=== PATIENT | female | born 1940 | race Caucasian/White ===

== ENCOUNTER 2016-09-28 18:45 | Inpatient (IN) | payer MEDICARE ==
[~2016-09-28] VITALS: Ht 162.6 cm; Wt 82.0 kg
[~2016-09-28 18:45] MED LIST: ALBU0.086 INH; AZIT500I PO; HUMALOGP SQ; HYDR50TA5 PO; LANTUSP SQ; LISI-366 PO; PRED10 PO; TOPR50TA
[2016-09-28 18:46] VITALS: BP 187/87; PULSE 99; RESP 17; TEMP 97.8; O2SAT 98
[2016-09-28 20:15] VITALS: BP 189/85; PULSE 87; RESP 18; O2SAT 100
[2016-09-28] MEDS ORDERED: METO50TA PO (20:15)
[2016-09-28] MEDS ORDERED: ALBU0.08 NEB (20:15)
[2016-09-28] MEDS ORDERED: LISI40TA PO (20:15)
[2016-09-28] MEDS ORDERED: HYDROmorphone HCL PF 1 MG/ML VIAL IV PUSH ONE (20:30)
[2016-09-28] MEDS ORDERED: ONDANSETRON HCL 4 MG/2 ML VIAL IV PUSH ONE (20:30)
[2016-09-28 21:04] LABS: AUTOMATED NEUTROPHIL # 7.9 TH/MM3 (1.8-7.7); BASOPHIL # 0.1 TH/MM3 (0-0.2); BASOPHIL % 0.8 % (0.0-2.0); EOSINOPHIL # 0.1 TH/MM3 (0-0.4); EOSINOPHIL % 0.9 % (0.0-4.0); HEMATOCRIT 31.6 % (35.0-46.0); HEMO FLAGS DIFF FINAL; LYMPHOCYTE # 1.3 TH/MM3 (1.0-4.8); MEAN CELL VOLUME 92.5 FL (80.0-100.0); MEAN CORPUSCULAR HEMOGLOBIN 31.5 PG (27.0-34.0); MONO % 5.4 % (0.0-8.0); NEUT % 79.9 % (16.0-70.0); PLATELET COUNT 309 TH/MM3 (150-450); RED BLOOD COUNT 3.42 MIL/MM3 (4.00-5.30); RED CELL DISTRIBUTION WIDTH 13.2 % (11.6-17.2); WHITE BLOOD COUNT 9.9 TH/MM3 (4.0-11.0)
--- NOTE | 2016-09-28 21:05 | PD ---
HPI Chief Complaint: Fall Time Seen by Provider: 21:00 Travel History International Travel<30 days: No Contact w/Intl Traveler<30days: No Traveled to known affect area: No History of Present Illness HPI 76-year-old female that presents to the ED for evaluation of fall today. Per patient she had a fall earlier today secondary to a trip. Per patient she usually uses her cane which she was using today but she states that she was going a little fast and she lost her balance and fell onto her left side. Per patient she has pain on left shoulder, head, neck, abdomen and lower back. The patient her hips hurt. She was not able to get up on her own and had to have assistance from her family. She denies taking any blood thinners but she also does tell me that she doesn't really know what she takes as she takes "16 different medications" and she didn't bring her list of medications. She does tell me that she has an allergy to Demerol and sulfa. Per patient her pain currently say out of 10 and is more severe on the shoulder than anywhere else. She denies any shortness of breath at this time. She does state me that she has some left-sided chest discomfort in the breast. She denies any cuts of any kind. She did not lose consciousness. She does tell me that she did hit her head however. She denies any prior injuries to these areas. She denies any syncopal episodes. No dizziness. No lightheadedness. No blurry vision or double vision. Pain does not radiate. Per patient the pain is sharp on the shoulder and achy everywhere else. PFSH Past Medical History Cardiovascular Problems: Yes ("HEART PROBLEMS") COPD: Yes Diabetes: Yes (JANUV) Patient Takes Glucophage: No Hypertension: Yes Psychiatric: No Reproductive: Yes (RIGHT OVARY REMOVED) Respiratory: Yes (COPD) : 4 Para: 4 Past Surgical History Abdominal Surgery: Yes (HERNIA 1956) Cholecystectomy: Yes (1991) Hysterectomy: Yes (1979) Tonsillectomy: Yes (CHILDHOOD) Social History Alcohol Use: No Tobacco Use: No Substance Use: No Allergies-Medications (Allergen,Severity, Reaction): Coded Allergies: Demerol (Verified Allergy, Severe, NAUSEA, 09/28/16) Sulfa (Verified Allergy, Severe, NAUSEA, 09/28/16) Reported Meds & Prescriptions Reported Meds & Active Scripts Active Reported Metoprolol Tartrate 50 Mg Tab 50 Mg PO DAILY Lisinopril 40 Mg Tab 40 Mg PO DAILY Albuterol Neb (Albuterol Sulfate) 2.5 Mg/3 Ml Neb 2.5 Mg NEB Q6HR While awake Review of Systems General / Constitutional: No: Fever, Chills, Weight Gain, Weight Loss, Other Eyes: No: Diploplia, Blurred Vision, Photophobia, Drainage, Redness, Foreign Body Sensation, Pain, Tearing, Blind Spots, Visual changes, Blindness, Other HENT: Positive: Headaches, No: Vertigo, Lightheadedness, Sore Throat, Rhinitis , Rhinorrhea, Congestion, Nosebleed, Neck Stiffness, Neck Pain, Masses, Gingival Bleeding, Dental Difficulties, Ear Discharge, Earache, Other Cardiovascular: Positive: Chest Pain or Discomfort, No: Palpitations, Irregular Rhythm, Tachycardia, Diaphoresis, Syncope, Dyspnea on exertion, Varicosities, Edema, Cyanosis, Varicosities, Phlebitis, Claudication, Other Respiratory: No: Cough, Shortness of Breath, Wheezing, Sneezing, Orthopnea, Hemoptysis, Stridor, Night Sweats, Pleuritic Pain, Other Gastrointestinal: Positive: Abdominal Pain, No: Nausea, Vomiting, Diarrhea, Hematemesis, Hematochezia, Constipation, Changes in Bowel Habits, Indigestion, Dysphagia, Loss of Appetite, Other Genitourinary: No: Urgency, Frequency, Dysuria, Nocturia, Hematuria, Decreased Urinary Output, Oliguria, Hesitancy, Dribbling, Incontinence, Pelvic Pain, Flank Pain, Dyspareunia, Discharge, Dysmenorrhea, Menorrhagia, Metorrhagia, Vaginal Bleeding, Other Musculoskeletal: Positive: Limited ROM, Pain, No: Myalgias, Arthralgias, Weakness, Cramping, Edema, Atrophy, Other Skin: No Rash, No Itching, No Dryness, No Lumps, No Hives, No Change in Pigmentation, No Change in nails, No Alopecia, No Lesions, No Breast Lumps, No Breast Tenderness, No Breast Swelling, No Other Neurologic: Positive: Headache, No: Weakness, Dizziness, Syncope, Focal Abnormalities, Coordination Problem, Tremor, Ataxia, Change in Mentation, Slurred Speech, Paresthesia, Incontinence, Seizures, Sensory Disturbance, Other Psychiatric: No: Anxiety, Depression, Suicidal Ideations, Disorder of Thought, Mood Disorder, Substance Abuse, Homicidal Ideation, Other Endocrine: No: Heat Intolerance, Cold Intolerance, Polyuria, Polydipsia, Other Hematologic/Lymphatic: No: Easy Bruising Physical Exam Narrative GENERAL: SKIN: Warm and dry. HEAD: Atraumatic. Normocephalic. EYES: Pupils equal and round 4 mm reactive to light and accommodation. No scleral icterus. No injection or drainage. ENT: No nasal bleeding or discharge. Mucous membranes pink and moist. Tongue is midline. No blood deviation. NECK: Trachea midline. No JVD. CARDIOVASCULAR: Regular rate and rhythm. No murmurs, history, S4. Patient does have reproducible left-sided chest discomfort with touch. RESPIRATORY: No accessory muscle use. Clear to auscultation. Breath sounds equal bilaterally. GASTROINTESTINAL: Abdomen soft, non-tender, nondistended. Hepatic and splenic margins not palpable. MUSCULOSKELETAL: Extremities without clubbing, cyanosis, or edema. No obvious deformities. Full range of motion of the upper and lower extremities with exception of the left upper extremity where she has pain on the shoulder has bruising and swelling noted on the left shoulder. No obvious clavicular or scapular pain tenderness to palpation. Patient has pain with abduction of the shoulder past 90 causes severe pain. She can barely even go 90 however. She does have full range of motion of the elbows, wrists, fingers, hands. She has full range of motion of the lower extremities besides some pain with left hip especially with extension and with weightbearing. Full range of motion of the knees and ankles as well as the feet and toes bilaterally. No obvious lumbar, thoracic spine tenderness to palpation. Patient does have cervical spine tenderness to palpation noted. Patient also pressure producible pain on the left abdomen as well as the left chest with touch. NEUROLOGICAL: Awake and alert. No obvious cranial nerve deficits. Motor grossly within normal limits. Five out of 5 muscle strength in the arms and legs. Normal speech. PSYCHIATRIC: Appropriate mood and affect; insight and judgment normal. Data Data Last Documented VS Vital Signs Date Time Temp Pulse Resp B/P Pulse Ox O2 Delivery O2 Flow Rate FiO2 09/28/16 22:24 87 17 187/87 97 Room Air 09/28/16 18:46 97.8 Orders Complete Blood Count With Diff (09/28/16 20:21) Basic Metabolic Panel (Bmp) (09/28/16 20:21) Chest, Single Ap (09/28/16 20:21) Ct Brain W/O Iv Contrast(Rout) (09/28/16 20:21) Ct Abd/Pel W Iv Contrast(Rout) (09/28/16 20:21) Iv Access Insert/Monitor (09/28/16 20:21) Shoulder, Complete (>2vws) (09/28/16 20:21) Pelvis, Ap Only (Routine) (09/28/16 20:21) Ct Thorax/ Chest W Iv Contrast (09/28/16 20:21) Hydromorphone Pf Inj (Dilaudid Pf Inj) (09/28/16 20:30) Ondansetron Inj (Zofran Inj) (09/28/16 20:30) Prothrombin Time / Inr (Pt) (09/28/16 21:04) Act Partial Throm Time (Ptt) (09/28/16 21:04) Sodium Chlor 0.9% 1000 Ml Inj (Ns 1000 M (09/28/16 21:47) Insulin Human Regular Inj (Novolin R Inj (09/28/16 22:00) Ct Cerv Spine W/O Contrast (09/28/16 ) Splint Or Brace Apply/Monitor (09/28/16 22:05) Iodixanol 320 Inj (Rad Ct) (Visipaque 32 (09/28/16 22:12) Labs Laboratory Tests Test 09/28/16 09/28/16 20:25 21:08 White Blood Count 9.9 TH/MM3 Red Blood Count 3.42 MIL/MM3 Hemoglobin 10.8 GM/DL Hematocrit 31.6 % Mean Corpuscular Volume 92.5 FL Mean Corpuscular Hemoglobin 31.5 PG Mean Corpuscular Hemoglobin 34.0 % Concent Red Cell Distribution Width 13.2 % Platelet Count 309 TH/MM3 Mean Platelet Volume 8.5 FL Neutrophils (%) (Auto) 79.9 % Lymphocytes (%) (Auto) 13.0 % Monocytes (%) (Auto) 5.4 % Eosinophils (%) (Auto) 0.9 % Basophils (%) (Auto) 0.8 % Neutrophils # (Auto) 7.9 TH/MM3 Lymphocytes # (Auto) 1.3 TH/MM3 Monocytes # (Auto) 0.5 TH/MM3 Eosinophils # (Auto) 0.1 TH/MM3 Basophils # (Auto) 0.1 TH/MM3 CBC Comment DIFF FINAL Differential Comment Sodium Level 132 MEQ/L Potassium Level 4.4 MEQ/L Chloride Level 96 MEQ/L Carbon Dioxide Level 26.4 MEQ/L Anion Gap 10 MEQ/L Blood Urea Nitrogen 15 MG/DL Creatinine 1.48 MG/DL Estimat Glomerular Filtration 34 ML/MIN Rate Random Glucose 531 MG/DL Calcium Level 9.1 MG/DL Prothrombin Time 11.1 SEC Prothromb Time International 1.0 RATIO Ratio Activated Partial 25.9 SEC Thromboplast Time MDM Medical Decision Making Medical Screen Exam Complete: Yes Emergency Medical Condition: Yes Medical Record Reviewed: Yes Differential Diagnosis Fall versus trauma versus fracture versus head injury versus rib fractures versus hemothorax versus internal bleeding Narrative Course 76-year-old female that presents to the ED for evaluation of fall. Patient was properly examined and was found to have signs and symptoms consistent with fall. Imaging and labs were ordered. Case was signed out to my attending pending imaging report and dispo. Tomasz Adhikari Sep 28, 2016 21:05
[2016-09-28 21:34] LABS: APTT (PATIENT) 25.9 SEC (24.3-30.1); PROTHROMBIN TIME - PATIENT 11.1 SEC (9.8-11.6)
[2016-09-28 21:35] LABS: BICARBONATE 26.4 MEQ/L (21.0-32.0); POTASSIUM 4.4 MEQ/L (3.5-5.1)
[2016-09-28] MEDS ORDERED: SODIUM CHLOR 0.9% 1000 ML INJ 1,000 ML IV SCH (21:47)
--- NOTE | 2016-09-28 21:54 | RADRPT ---
EXAM DATE/TIME: 09/28/2016 21:20 [facility] COMPARISON: No previous studies available for comparison. INDICATIONS : Chest pain. MEDICAL HISTORY : None. SURGICAL HISTORY : None. ENCOUNTER: Initial ACUITY: 1 day PAIN SCORE: 8/10 LOCATION: Bilateral chest FINDINGS: A single view of the chest demonstrates the lungs to be symmetrically aerated without evidence of mas s, infiltrate or effusion. The cardiomediastinal contours are unremarkable. Osseous structures sugg est deformity of the left clavicle possible fracture indeterminate age. Nonspecific elevation right h emidiaphragm. CONCLUSION: Nonspecific findings. Elevation right hemidiaphragm indeterminate chronicity. Deformity of the left c lavicle indeterminate chronicity Girish Hudson MD on September 28, 2016 at 21:52 Board Certified Radiologist. This report was verified electronically.
--- NOTE | 2016-09-28 21:56 | RADRPT ---
EXAM DATE/TIME: 09/28/2016 21:29 [facility] COMPARISON: No previous studies available for comparison. INDICATIONS : Fall on left shoulder. MEDICAL HISTORY : None. SURGICAL HISTORY : None. ENCOUNTER: Initial ACUITY: 1 day PAIN SCORE: 8/10 LOCATION: Left shoulder FINDINGS: There is an apparent acute fracture just beyond the midshaft of the clavicle with distal fragment one half bone width cephalad displaced upon the proximal fragment. Questionable minimal cyst subluxation of the humeral head in the glenohumeral fossa. CONCLUSION: Acute clavicle fracture. Girish Hudson MD on September 28, 2016 at 21:53 Board Certified Radiologist. This report was verified electronically.
--- NOTE | 2016-09-28 21:57 | RADRPT ---
EXAM DATE/TIME: 09/28/2016 21:27 [facility] COMPARISON: No previous studies available for comparison. INDICATIONS : Trauma to hip. MEDICAL HISTORY : None. SURGICAL HISTORY : None. ENCOUNTER: Initial ACUITY: 1 day PAIN SCORE: 8/10 LOCATION: Bilateral pelvis FINDINGS: A single frontal view of the pelvis demonstrates no evidence of fracture. The bony pelvic ring is in tact. Bony mineralization is normal. The soft tissues are intact with vascular calcifications appre ciated. CONCLUSION: Intact pelvis Girish Hudson MD on September 28, 2016 at 21:54 Board Certified Radiologist. This report was verified electronically.
[2016-09-28] MEDS ORDERED: INSULIN HUMAN REGULAR 1,000 UNITS/10 ML VIAL SQ ONE (22:00)
[2016-09-28] MEDS ORDERED: IODIXANOL 320 MG/ML 10 ML VIAL (for Rad CT) IV ONE (22:12)
--- NOTE | 2016-09-28 22:20 | RADRPT ---
EXAM DATE/TIME: 09/28/2016 22:03 [facility] COMPARISON: No previous studies available for comparison. INDICATIONS : Trauma, fall. RADIATION DOSE: 61.89 CTDIvol (mGy) MEDICAL HISTORY : Hypertension. Diabetes mellitus type 2. SURGICAL HISTORY : None. ENCOUNTER: Initial ACUITY: 1 day PAIN SCALE: 0/10 LOCATION: cranial TECHNIQUE: Multiple contiguous axial images were obtained of the head. Using automated exposure control and adj ustment of the mA and/or kV according to patient size, radiation dose was kept as low as reasonably a chievable to obtain optimal diagnostic quality images. FINDINGS: CEREBRUM: The ventricles are normal for age. No evidence of midline shift, mass lesion, hemorrhage or acute in farction. No extra-axial fluid collections are seen. POSTERIOR FOSSA: The cerebellum and brainstem are intact. The 4th ventricle is midline. The cerebellopontine angle i s unremarkable. EXTRACRANIAL: The visualized portion of the orbits is intact. Vascular calcifications of the internal carotid arter ies in the siphon and vertebral arteries at the foramen SKULL: The calvaria is intact. No evidence of skull fracture. CONCLUSION: Normal examination for a patient of this age. Girish Hudson MD on September 28, 2016 at 22:18 Board Certified Radiologist. This report was verified electronically.
[2016-09-28 22:24] VITALS: BP 187/87; PULSE 87; RESP 17; O2SAT 97
--- NOTE | 2016-09-28 22:25 | RADRPT ---
EXAM DATE/TIME: 09/28/2016 22:03 [facility] COMPARISON: No previous studies available for comparison. INDICATIONS : Trauma, fall. RADIATION DOSE: 19.09 CTDIvol (mGy) MEDICAL HISTORY : Hypertension. Diabetes mellitus type 2. SURGICAL HISTORY : None. ENCOUNTER: Initial ACUITY: 1 day PAIN SCALE: 7/10 LOCATION: neck TECHNIQUE: Volumetric scanning of the cervical spine was performed. Multiplanar reconstructions in the sagittal, coronal and oblique axial planes were performed. Using automated exposure control and adjustment o f the mA and/or kV according to patient size, radiation dose was kept as low as reasonably achievable to obtain optimal diagnostic quality images. FINDINGS: The soft tissues are negative. And the bony structures are intact with no evidence fracture, compress ion, subluxation, or destructive change. Odontoid has normal relationship the arch of C1. Extensive d egenerative changes are noted most marked degenerative disc disease C45 and 56 narrowed disc spaces w ith circumferential spurring and posterior osteophyte disc complexes encroach upon the spinal canal. Facet arthritic changes noted posteriorly. CONCLUSION: No acute bony injury. Degenerative changes as described above Girish Hudson MD on September 28, 2016 at 22:21 Board Certified Radiologist. This report was verified electronically.
--- NOTE | 2016-09-28 22:30 | RADRPT ---
EXAM DATE/TIME: 09/28/2016 22:09 [facility] COMPARISON: No previous studies available for comparison. INDICATIONS : Trauma, fall. IV CONTRAST: 50 cc Visipaque (iodixanol) IV ; Cumulative dose for multiple exams. RADIATION DOSE: 17.71 CTDIvol (mGy) ; Combined studies - Thorax/Abdomen/Pelvis MEDICAL HISTORY : Chronic obstructive pulmonary disease. Hypertension. Diabetes mellitus type 2.Hernia. SURGICAL HISTORY : Hysterectomy. Hernia repair. oopherectomy, right. ENCOUNTER: Initial ACUITY: 1 day PAIN SCALE: 5/10 LOCATION: Paraspinal TECHNIQUE: Volumetric scanning of the chest was performed. Using automated exposure control and adjustment of t he mA and/or kV according to patient size, radiation dose was kept as low as reasonably achievable to obtain optimal diagnostic quality images. FINDINGS: LUNGS: There is no consolidation or pneumothorax. No concerning pulmonary nodule is visualized. PLEURA: There is no pleural thickening or pleural effusion. MEDIASTINUM: The heart and great vessels demonstrate no acute abnormality. There is no mediastinal or hilar lymph adenopathy. Mitral valve calcification. AXILLAE: Within normal limits. No lymphadenopathy. SKELETAL: Within normal limits for patient age. MISCELLANEOUS: There is a fracture of the distal left clavicle. Subtle fractures of the left fourth and fifth rib fr actures posteriorly are appreciated. CONCLUSION: Fracture left clavicle. Subtle fractures of left posterior fourth and fifth ribs. Otherwise negative specifically no evidence of pneumothorax, pleural effusion or acute cardiopulmonary process Girish Hudson MD on September 28, 2016 at 22:24 Board Certified Radiologist. This report was verified electronically.
--- NOTE | 2016-09-28 22:37 | RADRPT ---
EXAM DATE/TIME: 09/28/2016 22:09 [facility] COMPARISON: No previous studies available for comparison. INDICATIONS : Trauma, fall. IV CONTRAST: 50 cc Visipaque (iodixanol) IV ; Cumulative dose for multiple exams. ORAL CONTRAST: No oral contrast ingested. RADIATION DOSE: 17.71 CTDIvol (mGy) ; Combined studies - Thorax/Abdomen/Pelvis MEDICAL HISTORY : Chronic obstructive pulmonary disease. Hypertension. Diabetes mellitus type 2.Hernia, SURGICAL HISTORY : Hysterectomy. Hernia repair. Oopherectomy, right. ENCOUNTER: Initial ACUITY: 1 day PAIN SCALE: 5/10 LOCATION: Paraspinal TECHNIQUE: Volumetric scanning of the abdomen and pelvis was performed. Using automated exposure control and ad justment of the mA and/or kV according to patient size, radiation dose was kept as low as reasonably achievable to obtain optimal diagnostic quality images. FINDINGS: LOWER LUNGS: Lung jarrett are clear. LIVER: Homogeneous density without lesion. There is no dilation of the biliary tree. Clips in place prior c holecystectomy. SPLEEN: Normal size without lesion. PANCREAS: Within normal limits. KIDNEYS: Normal in size and shape. There is no mass, stone or hydronephrosis. ADRENAL GLANDS: Within normal limits. VASCULAR: There is no aortic aneurysm. BOWEL/MESENTERY: The stomach, small bowel, and colon demonstrate no acute abnormality. There is no free intraperitone al air or fluid. ABDOMINAL WALL: Within normal limits. RETROPERITONEUM: There is no lymphadenopathy. BLADDER: No wall thickening or mass. REPRODUCTIVE: Within normal limits. Surgical absence of the uterus INGUINAL: There is no lymphadenopathy or hernia. MUSCULOSKELETAL: Bony structures are osteopenic. There is suggestion of a subtle fracture of left rib #9 laterally. Conclusion. Surgical absence of the uterus and gallbladder. Subtle os both fracture left ninth rib laterally. Osteopenia and degenerative changes primarily facet arthritic changes of the tea mbar spine. Otherwise negative with no acute intra-abdominal or pelvic process. Girish Hudson MD on September 28, 2016 at 22:29 Board Certified Radiologist. This report was verified electronically.
--- NOTE | 2016-09-28 22:48 | PD ---
Data Data Last Documented VS Vital Signs Date Time Temp Pulse Resp B/P Pulse Ox O2 Delivery O2 Flow Rate FiO2 09/28/16 22:24 87 17 187/87 97 Room Air 09/28/16 18:46 97.8 Orders Complete Blood Count With Diff (09/28/16 20:21) Basic Metabolic Panel (Bmp) (09/28/16 20:21) Chest, Single Ap (09/28/16 20:21) Ct Brain W/O Iv Contrast(Rout) (09/28/16 20:21) Ct Abd/Pel W Iv Contrast(Rout) (09/28/16 20:21) Iv Access Insert/Monitor (09/28/16 20:21) Shoulder, Complete (>2vws) (09/28/16 20:21) Pelvis, Ap Only (Routine) (09/28/16 20:21) Ct Thorax/ Chest W Iv Contrast (09/28/16 20:21) Hydromorphone Pf Inj (Dilaudid Pf Inj) (09/28/16 20:30) Ondansetron Inj (Zofran Inj) (09/28/16 20:30) Prothrombin Time / Inr (Pt) (09/28/16 21:04) Act Partial Throm Time (Ptt) (09/28/16 21:04) Sodium Chlor 0.9% 1000 Ml Inj (Ns 1000 M (09/28/16 21:47) Insulin Human Regular Inj (Novolin R Inj (09/28/16 22:00) Ct Cerv Spine W/O Contrast (09/28/16 ) Splint Or Brace Apply/Monitor (09/28/16 22:05) Iodixanol 320 Inj (Rad Ct) (Visipaque 32 (09/28/16 22:12) Sling Cradle Arm (09/28/16 ) Insulin Human Regular Inj (Novolin R Inj (09/28/16 23:15) Admit Order (Ed Use Only) (09/28/16 23:29) Labs Laboratory Tests Test 09/28/16 09/28/16 20:25 21:08 White Blood Count 9.9 TH/MM3 Red Blood Count 3.42 MIL/MM3 Hemoglobin 10.8 GM/DL Hematocrit 31.6 % Mean Corpuscular Volume 92.5 FL Mean Corpuscular Hemoglobin 31.5 PG Mean Corpuscular Hemoglobin 34.0 % Concent Red Cell Distribution Width 13.2 % Platelet Count 309 TH/MM3 Mean Platelet Volume 8.5 FL Neutrophils (%) (Auto) 79.9 % Lymphocytes (%) (Auto) 13.0 % Monocytes (%) (Auto) 5.4 % Eosinophils (%) (Auto) 0.9 % Basophils (%) (Auto) 0.8 % Neutrophils # (Auto) 7.9 TH/MM3 Lymphocytes # (Auto) 1.3 TH/MM3 Monocytes # (Auto) 0.5 TH/MM3 Eosinophils # (Auto) 0.1 TH/MM3 Basophils # (Auto) 0.1 TH/MM3 CBC Comment DIFF FINAL Differential Comment Sodium Level 132 MEQ/L Potassium Level 4.4 MEQ/L Chloride Level 96 MEQ/L Carbon Dioxide Level 26.4 MEQ/L Anion Gap 10 MEQ/L Blood Urea Nitrogen 15 MG/DL Creatinine 1.48 MG/DL Estimat Glomerular Filtration 34 ML/MIN Rate Random Glucose 531 MG/DL Calcium Level 9.1 MG/DL Prothrombin Time 11.1 SEC Prothromb Time International 1.0 RATIO Ratio Activated Partial 25.9 SEC Thromboplast Time [facility] Medical Record Reviewed: Yes Supervised Visit with JAQUAN: Yes Narrative Course CBC & BMP Diagram 09/28/16 20:25 No anion gap Coags 11.1 / 1.0 / 25.9 Last 24 hours Impressions Shoulder X-Ray 09/28/162020 Signed Impressions: Service Date/Time: September 21:29 - CONCLUSION: Acute clavicle fracture. Girish Hudson MD Pelvis X-Ray 09/28/162020 Signed Impressions: Service Date/Time: September 21:27 - CONCLUSION: Intact pelvis Girish Hudson MD Head CT 09/28/162020 Signed Impressions: Service Date/Time: September 22:03 - CONCLUSION: Normal examination for a patient of this age. Girish Hudson MD Chest X-Ray 09/28/162020 Signed Impressions: Service Date/Time: September 21:20 - CONCLUSION: Nonspecific findings. Elevation right hemidiaphragm indeterminate chronicity. Deformity of the left clavicle indeterminate chronicity Girish Hudson MD Chest CT 09/28/162020 Signed Impressions: Service Date/Time: September 22:09 - CONCLUSION: Fracture left clavicle. Subtle fractures of left posterior fourth and fifth ribs. Otherwise negative specifically no evidence of pneumothorax, pleural effusion or acute cardiopulmonary process Girish Hudson MD Abdomen/Pelvis CT 09/28/162020 Signed Impressions: Service Date/Time: September 22:09 - CONCLUSION: Cervical Spine CT 09/28/16 0000 Signed Impressions: Service Date/Time: September 22:03 - CONCLUSION: No acute bony injury. Degenerative changes as described above Girish Hudson MD CT ab/pel: Surgical absence of the uterus and gallbladder. L lateral rb fracture 8units IV insulin. 1L NS. repeat FSG elevated 10units IV insulin administered a second time. Observation for pain control and PT. d/w Dr Brito. Diagnosis Primary Impression: Fall Qualified Code: W19.XXXA - Fall, initial encounter Additional Impressions: Ribs, multiple fractures Qualified Code: S22.42XA - Closed fracture of multiple ribs of left side, initial encounter Hyperglycemia Admitting Information Admitting Physician Requests: Observation Lit Mcgarry MD Sep 28, 2016 22:48
[2016-09-28] MEDS ORDERED: INSULIN HUMAN REGULAR 1,000 UNITS/10 ML VIAL IVP ONE (23:15)
[2016-09-28] MEDS ORDERED: SITA25 PO (23:31)
--- NOTE | 2016-09-28 23:35 | HHI.HP ---
[facility] Primary Care Physician No Primary Care Physician Admission Diagnosis Fall, Clavicle Fx, Hyperglycemia, Rib Fxs Diagnoses: (1) Fall Diagnosis: Principal (2) Ribs, multiple fractures Diagnosis: Principal (3) Clavicle fracture Diagnosis: Principal (4) Renal insufficiency Diagnosis: Principal (5) HTN (hypertension) Diagnosis: Principal (6) DM (diabetes mellitus) Diagnosis: Principal Travel History International Travel<30 Days: No Contact w/Intl Traveler <30 Da: No Traveled to Known Affected Are: No History of Present Illness This is a 76-year-old female with a PMH of HTN, COPD and DM who is brought to the ER by EMS secondary to mechanical fall w/ c/o headache and left shoulder pain. Per pt she was walking up to her house, states she was hurrying and tripped over the front step. No LOC, +head trauma. Called her Son-in-Law who called EMS. On arrival, BP 187/87, HR 99, O2 sat 98% on RA, Afebrile. Creatinine 1.48, previously 1.20 on 10/26/06, BS 531, s/p 10u Insulin. CT Head normal. CT C-spine with no acute injury. Left Shoulder X-ray with acute clavicle fracture. Pelvis X-ray intact. CT Chest with fracture left clavicle, subtle fractures of left posterior fourth and fifth ribs, no pneumothorax. CT Abd/Pelvis negative. S/p sling in ER. Pt w/ difficulty ambulating, lives alone , unsafe discharge at this time. Review of Systems Except as stated in HPI: all other systems reviewed are Neg ROS: 14 point review of systems otherwise negative. Past Family Social History Past Medical History PMH: HTN, COPD and DM Past Surgical History PAST SURGICAL HISTORY: Hernia Repair, Cholecystectomy, Hysterectomy, Tonsillectomy Allergies: Coded Allergies: Demerol (Verified Allergy, Severe, NAUSEA, 09/28/16) Sulfa (Verified Allergy, Severe, NAUSEA, 09/28/16) Family History PAST FAMILY HISTORY: Reviewed. No h/o DM or CAD Social History PAST SOCIAL HISTORY: Negative for alcohol, tobacco or drugs. Physical Exam Vital Signs Vital Signs Date Time Temp Pulse Resp B/P Pulse Ox O2 Delivery O2 Flow Rate FiO2 09/28/16 22:24 87 17 187/87 97 Room Air 09/28/16 20:15 87 18 189/85 100 Room Air 09/28/16 18:46 97.8 99 17 187/87 98 Physical Exam PE: GENERAL: Very pleasant elderly white female in no acute distress. HEENT: PERRLA, EOMI. No scleral icterus or conjunctival pallor. No lid lag or facial droop. CARDIOVASCULAR: Regular rate and rhythm. No obvious murmurs to auscultation. No chest tenderness to palpation. +left rib tenderness. RESPIRATORY: No obvious rhonchi or wheezing. Clear to auscultation. Breath sounds equal bilaterally. GASTROINTESTINAL: Abdomen soft, non-tender, nondistended. BS normal. MUSCULOSKELETAL: Extremities without clubbing, cyanosis, or edema. No obvious deformities. Left arm in sling. NEUROLOGICAL: Awake, alert and oriented x4. No focal neurologic deficits. Moving both upper and lower extremities spontaneously. Laboratory Laboratory Tests Test 09/28/16 09/28/16 20:25 21:08 White Blood Count 9.9 Red Blood Count 3.42 Hemoglobin 10.8 Hematocrit 31.6 Mean Corpuscular Volume 92.5 Mean Corpuscular Hemoglobin 31.5 Mean Corpuscular Hemoglobin 34.0 Concent Red Cell Distribution Width 13.2 Platelet Count 309 Mean Platelet Volume 8.5 Neutrophils (%) (Auto) 79.9 Lymphocytes (%) (Auto) 13.0 Monocytes (%) (Auto) 5.4 Eosinophils (%) (Auto) 0.9 Basophils (%) (Auto) 0.8 Neutrophils # (Auto) 7.9 Lymphocytes # (Auto) 1.3 Monocytes # (Auto) 0.5 Eosinophils # (Auto) 0.1 Basophils # (Auto) 0.1 CBC Comment DIFF FINAL Differential Comment Sodium Level 132 Potassium Level 4.4 Chloride Level 96 Carbon Dioxide Level 26.4 Anion Gap 10 Blood Urea Nitrogen 15 Creatinine 1.48 Estimat Glomerular Filtration 34 Rate Random Glucose 531 Calcium Level 9.1 Prothrombin Time 11.1 Prothromb Time International 1.0 Ratio Activated Partial 25.9 Thromboplast Time Result Diagram: 09/28/16202409/28/162024 Assessment and Plan Problem List: (1) Fall ICD Code: W19.XXXA Status: Acute (2) Ribs, multiple fractures ICD Code: S22.49XA Status: Acute (3) Clavicle fracture ICD Code: S42.009A Status: Acute (4) Renal insufficiency ICD Code: N28.9 Status: Acute (5) HTN (hypertension) ICD Code: I10 Status: Acute (6) DM (diabetes mellitus) ICD Code: E11.9 Status: Acute Assessment and Plan A/P: 1. Fall: s/p mechanical trip and fall, no LOC, +head trauma. CT Head/C-Spine w/ no acute findings, images reviewed by me. PT for eval/tx. 2. Left Clavicle Fx: secondary to above, CT Chest w/ left clavicle fracture, s /p sling placement in ER. Analgesics/antiemetics as needed. 3. Left Rib Fxs: CT Chest w/ subtle fractures of left 4th and 5th ribs, images reviewed by me. Analgesics, Lidoderm patch as needed. 4. Renal Insufficiency: Acute on Chronic. Creatinine 1.48, previously 1.20 on 10/26/06. Check U/a, IVF, repeat labs in am. 5. HTN: BP 180's on arrival, likely compounded by pain. BP currently 150/73, HR 94. Monitor BP. Resume home medications. Pain control. 6. DM: Sliding scale w/ Accu-Cheks. BS 531 on arrival, s/p 10u Insulin. Check Hgb A1c. 7. DVT Prophylaxis: SCD/Teds. 8. Social work for d/c planning as needed. 9. Case discussed w/ ER physician at length. Problem Qualifiers (1) Fall: Qualified Code: W19.XXXA - Fall, initial encounter (2) Ribs, multiple fractures: Qualified Code: S22.42XA - Closed fracture of multiple ribs of left side, initial encounter Anju Brito MD Sep 28, 2016 23:35
[2016-09-28] MEDS ORDERED: MORPHINE SULFATE 4 MG/ML INJ IV PRN (23:45)
[2016-09-28] MEDS ORDERED: SODIUM CHLORIDE 0.9% FLUSH 5 ML FLUSH FLUSH PRN (23:45)
[2016-09-28] MEDS ORDERED: INSULIN HUMAN REGULAR 1,000 UNITS/10 ML VIAL IV PUSH ONE (23:45)
[2016-09-28] MEDS ORDERED: GLUCAGON 1 MG/ML VIAL OTHER PRN (23:45)
[2016-09-28] MEDS ORDERED: BISACODYL 10 MG SUPP PR PRN (23:45)
[2016-09-28] MEDS ORDERED: DEXTROSE 50% IN WATER 50 ML VIAL(D50) IV PUSH PRN (23:45)
[2016-09-28] MEDS ORDERED: ACETAMINOPHEN 325 MG TAB PO PRN (23:45)
[2016-09-28] MEDS: SODIUM CHLOR 0.9% 1000 ML INJ 1,000 ML IV SCH (23:51)
[2016-09-28] MEDS: ACETAMINOPHEN/HYDROcodone 325 MG/5 MG TAB PO PRN (23:57)
[2016-09-28 23:58] VITALS: BP 150/73; PULSE 94; RESP 16; O2SAT 96
[2016-09-29 00:15] LABS: BLOOD, URINE NEG (NEG); GLUCOSE,URINE 1000 mg/dL (NEG); KETONE, URINE NEG (NEG); MUCUS URINE FEW /lpf (OCC); SQUAMOUS EPITHELIAL CELL URINE 2 /hpf (0-5); URINE COLOR COLORLESS (YELLW/STRAW)
[2016-09-29 00:29] LABS: COMMENT (UR) CULTURE INDICATED; CULTURE IF INDICATED CULTURE INDICATED; NITRITE,URINE POS (NEG)
[2016-09-29] MEDS: ACETAMINOPHEN/HYDROcodone 325 MG/5 MG TAB PO PRN ×2 (02:41→21:51)
[2016-09-29 05:45] LABS: ALKALINE PHOSPHATASE 75 U/L (45-117); ALT (GPT) 6 U/L (10-53); ANION GAP 9 MEQ/L (5-15); AST (GOT) 9 U/L (15-37); BICARBONATE 24.6 MEQ/L (21.0-32.0); BLOOD UREA NITROGEN 14 MG/DL (7-18); CHLORIDE 105 MEQ/L (98-107); GLOMERULAR FILTRATION RATE 43 ML/MIN (>89); POTASSIUM 3.5 MEQ/L (3.5-5.1); SODIUM (NA) 139 MEQ/L (136-145); TOTAL BILIRUBIN ADULT 0.3 MG/DL (0.2-1.0)
[2016-09-29 06:41] LABS: AUTOMATED NEUTROPHIL # 5.1 TH/MM3 (1.8-7.7); BASOPHIL % 0.4 % (0.0-2.0); EOSINOPHIL # 0.1 TH/MM3 (0-0.4); EOSINOPHIL % 0.7 % (0.0-4.0); HEMO FLAGS DIFF FINAL; LYMPHOCYTE # 2.3 TH/MM3 (1.0-4.8); MEAN CELL VOLUME 92.9 FL (80.0-100.0); MEAN CORPUSCULAR HEMOGLOBIN 31.5 PG (27.0-34.0); MEAN CORPUSCULAR HGB CONC 33.9 % (32.0-36.0); MONO % 12.2 % (0.0-8.0); NEUT % 59.7 % (16.0-70.0); PLATELET COUNT 254 TH/MM3 (150-450); RED BLOOD COUNT 3.23 MIL/MM3 (4.00-5.30); RED CELL DISTRIBUTION WIDTH 13.3 % (11.6-17.2); WHITE BLOOD COUNT 8.6 TH/MM3 (4.0-11.0)
[2016-09-29] MEDS: INSULIN ASPART SUPPLEMENTAL SCALE SQ SCH ×4 (06:45→21:51)
[2016-09-29 07:43] VITALS: BP 120/58; PULSE 72; RESP 18; TEMP 96.2; O2SAT 96
--- NOTE | 2016-09-29 08:02 | HHI.PR ---
Subjective Remarks Follow up for fall with clavicle fracture and rib fractures. The patient reports her pain is mostly under control, just has some constant discomfort at the left upper chest and shoulder. Denies any shortness of breath. Denies any headache, lightheadedness, or dizziness. She would like to go home later today if possible. Objective Vitals Vital Signs Date Time Temp Pulse Resp B/P Pulse Ox O2 Delivery O2 Flow Rate FiO2 09/29/16 07:43 96.2 72 18 120/58 96 09/28/16 23:58 94 16 150/73 96 Room Air 09/28/16 22:24 87 17 187/87 97 Room Air 09/28/16 20:15 87 18 189/85 100 Room Air 09/28/16 18:46 97.8 99 17 187/87 98 Result Diagram: 09/29/16 0444 09/29/16 0444 Imaging Last Impressions Shoulder X-Ray 09/28/162020 Signed Impressions: Service Date/Time: September 21:29 - CONCLUSION: Acute clavicle fracture. Girish Hudson MD Pelvis X-Ray 09/28/162020 Signed Impressions: Service Date/Time: September 21:27 - CONCLUSION: Intact pelvis Girish Hudson MD Head CT 09/28/162020 Signed Impressions: Service Date/Time: September 22:03 - CONCLUSION: Normal examination for a patient of this age. Girish Hudson MD Chest X-Ray 09/28/162020 Signed Impressions: Service Date/Time: September 21:20 - CONCLUSION: Nonspecific findings. Elevation right hemidiaphragm indeterminate chronicity. Deformity of the left clavicle indeterminate chronicity Girish Hudson MD Chest CT 09/28/162020 Signed Impressions: Service Date/Time: September 22:09 - CONCLUSION: Fracture left clavicle. Subtle fractures of left posterior fourth and fifth ribs. Otherwise negative specifically no evidence of pneumothorax, pleural effusion or acute cardiopulmonary process Girish Hudson MD Abdomen/Pelvis CT 09/28/162020 Signed Impressions: Service Date/Time: September 22:09 - CONCLUSION: Cervical Spine CT 09/28/16 0000 Signed Impressions: Service Date/Time: September 22:03 - CONCLUSION: No acute bony injury. Degenerative changes as described above Girish Hudson MD Objective Remarks GENERAL: Well-nourished, well-developed pleasant elderly female patient in [facility]. SKIN: Warm and dry. No rash. HEENT: Normocephalic. Atraumatic. Pupils equal and round. No scleral icterus. No injection or drainage. Mucous membranes pink and moist. NECK: Supple. Trachea midline. CARDIOVASCULAR: Regular rate and rhythm. S1, S2 noted. No murmur appreciated. RESPIRATORY: No accessory muscle use. Clear to auscultation. Breath sounds equal bilaterally. GASTROINTESTINAL: Abdomen soft, non-tender, nondistended. Normoactive bowel sounds x4. MUSCULOSKELETAL: No obvious deformities. Extremities without clubbing, cyanosis , or edema. LUE in sling. NEUROLOGICAL: Awake and alert. No obvious cranial nerve deficits. Motor grossly within normal limits. 5/5 muscle strength in bilateral upper and lower extremities. Normal speech. PSYCHIATRIC: Appropriate mood and affect; insight and judgment normal. Medications and IVs Current Medications Medications (Trade) Dose Ordered Sig/Steph Route Start Time Stop Time Status Last Admin (D50w (Vial) Inj) 25 ml UNSCH PRN IV PUSH 09/28/16 23:45 Glucagon 1 mg 1 mg UNSCH PRN OTHER 09/28/16 23:45 (NS 1000 ml Inj) 1,000 ml @ 100 mls/hr Q10H IV 09/28/16 23:33 09/28/16 23:51 (NS Flush) 2 ml UNSCH PRN FLUSH 09/28/16 23:45 (NS Flush) 2 ml BID FLUSH 09/29/16 09:00 (Zofran Inj) 4 mg Q6H PRN IVP 09/28/16 23:45 (Dulcolax Supp) 10 mg DAILY PRN [place] 09/28/16 23:45 (Tylenol) 650 mg Q6H PRN PO 09/28/16 23:45 ([place] 5-325 Mg) 1 tab Q4H PRN PO 09/28/16 23:45 09/29/16 02:41 (Morphine Inj) 2 mg Q3H PRN IV 09/28/16 23:45 (Flu (Quadrivalent) Vaccine Inj) 0.5 ml ONCE ONCE IM 09/29/16 09:00 09/29/16 09:01 Urinary Catheter: No Vascular Central Line Catheter: No A/P Problem List: (1) Fall ICD Code: W19.XXXA Status: Acute (2) Ribs, multiple fractures ICD Code: S22.49XA Status: Acute (3) Clavicle fracture ICD Code: S42.009A Status: Acute (4) Renal insufficiency ICD Code: N28.9 Status: Acute (5) HTN (hypertension) ICD Code: I10 Status: Acute (6) DM (diabetes mellitus) ICD Code: E11.9 Status: Acute Assessment and Plan 76-year-old female with a PMH of HTN, COPD and DM who is brought to the ER by EMS secondary to mechanical fall w/ c/o headache and left shoulder pain. Mechanical Fall: s/p mechanical trip and fall, no LOC, +head trauma. CT Head/C -Spine w/ no acute findings, images reviewed by me. PT for eval/tx. Left Clavicle Fx: secondary to above, CT Chest w/ left clavicle fracture, s/p sling placement in ER. Analgesics/antiemetics as needed. Left Rib Fxs: CT Chest w/ subtle fractures of left 4th and 5th ribs, images reviewed by me. Analgesics, Lidoderm patch as needed. Renal Insufficiency: Acute on Chronic. Creatinine 1.48, previously 1.20 on 25/02. UA unremarkable. Given IVF, repeat labs today show improvement Cr 1.21. HTN: BP 180's on arrival, likely compounded by pain. BP currently 150/73, HR 94. Monitor BP. Resume home medications. Pain control. DM: Sliding scale w/ Accu-Cheks. BS 531 on arrival, s/p 10u Insulin. Check Hgb A1c. DVT Prophylaxis: SCD/Teds. Discussed with Dr. Heard. Problem Qualifiers (1) Fall: Qualified Code: W19.XXXA - Fall, initial encounter (2) Ribs, multiple fractures: Qualified Code: S22.42XA - Closed fracture of multiple ribs of left side, initial encounter Leilani Gallegos PA-C Sep 29, 2016 08:02 Rolando Heard MD Sep 29, 2016 23:48
[2016-09-29] MEDS ORDERED: DOCUSATE SODIUM 50 MG/SENNA 8.6 MG TAB PO ONE (09:00)
[2016-09-29] MEDS ORDERED: INFLUENZA VIRUS VACCINE (QUADRIVALENT) 0.5 ML SYR IM ONE (09:00)
[2016-09-29] MEDS: SODIUM CHLORIDE 0.9% FLUSH 5 ML FLUSH FLUSH SCH ×2 (10:10→21:51)
[2016-09-29 11:54] VITALS: BP 132/66; PULSE 74; RESP 18; TEMP 97.8; O2SAT 98
[2016-09-29] MEDS: SODIUM CHLOR 0.9% 1000 ML INJ 1,000 ML IV SCH ×2 (12:16→19:33)
[2016-09-29 15:36] VITALS: BP 136/67; PULSE 77; RESP 16; TEMP 97.6; O2SAT 95
[2016-09-29 16:22] LABS: HEMOGLOBIN A1a 1.3 %; HEMOGLOBIN Ao 79.4 %; HEMOGLOBIN LA1C 2.1 %; HEMOGLOBIN P3 5.9 %
[2016-09-29 19:00] VITALS: BP 145/78; PULSE 78; RESP 18; TEMP 98.4; O2SAT 95
[2016-09-29 20:00] VITALS: BP 141/78; PULSE 84; RESP 21; TEMP 98.4; O2SAT 99
[2016-09-29] MEDS: DOCUSATE SODIUM 50 MG/SENNA 8.6 MG TAB PO SCH (21:50)
[2016-09-29] MEDS: ONDANSETRON HCL 4 MG/2 ML VIAL IVP PRN (21:51)
[2016-09-30 03:26] VITALS: BP 131/74; PULSE 87; RESP 18; TEMP 98.8; O2SAT 98
[2016-09-30] MEDS: SODIUM CHLOR 0.9% 1000 ML INJ 1,000 ML IV SCH ×2 (05:54→13:48)
[2016-09-30] MEDS: INSULIN ASPART SUPPLEMENTAL SCALE SQ SCH ×4 (05:55→21:32)
[2016-09-30 07:49] VITALS: BP 143/76; PULSE 69; RESP 16; TEMP 98.1; O2SAT 96
[2016-09-30] MEDS: SODIUM CHLORIDE 0.9% FLUSH 5 ML FLUSH FLUSH SCH ×2 (08:06→21:00)
[2016-09-30] MEDS: DOCUSATE SODIUM 50 MG/SENNA 8.6 MG TAB PO SCH ×2 (08:06→21:32)
[2016-09-30] MEDS: ACETAMINOPHEN/HYDROcodone 325 MG/5 MG TAB PO PRN ×3 (08:12→21:33)
--- NOTE | 2016-09-30 08:23 | HHI.PR ---
Subjective Remarks Follow up for fall with clavicle fracture and rib fractures. The patient reports moderate pain at her left anterior chest and shoulder, relieved by pain medications. She has not yet had a BM despite mirtha-colace, discussed trying Miralax which has worked for her in the past. She also complains of her buttocks feeling sore, she has been mostly in the same position in bed since arrival, discussed with the patient and RN about frequent position changes. She is still deciding on rehab. She is inquiring about staying here and working with PT until she can go home, explained she will get daily and more frequent PT at a rehab facility. Consider [facility]. Objective Vitals Vital Signs Date Time Temp Pulse Resp B/P Pulse Ox O2 Delivery O2 Flow Rate FiO2 09/30/16 07:49 98.1 69 16 143/76 96 09/30/16 03:26 98.8 87 18 131/74 98 09/29/16 20:00 98.4 84 21 141/78 99 09/29/16 19:00 98.4 78 18 145/78 95 09/29/16 15:36 97.6 77 16 136/67 95 09/29/16 11:54 97.8 74 18 132/66 98 Result Diagram: 09/29/16 0444 09/30/16 0555 Imaging Last Impressions Shoulder X-Ray 09/28/162020 Signed Impressions: Service Date/Time: September 21:29 - CONCLUSION: Acute clavicle fracture. Girish Hudson MD Pelvis X-Ray 09/28/162020 Signed Impressions: Service Date/Time: September 21:27 - CONCLUSION: Intact pelvis Girish Hudson MD Head CT 09/28/162020 Signed Impressions: Service Date/Time: September 22:03 - CONCLUSION: Normal examination for a patient of this age. Girish Hudson MD Chest X-Ray 09/28/162020 Signed Impressions: Service Date/Time: September 21:20 - CONCLUSION: Nonspecific findings. Elevation right hemidiaphragm indeterminate chronicity. Deformity of the left clavicle indeterminate chronicity Girish Hudson MD Chest CT 09/28/162020 Signed Impressions: Service Date/Time: September 22:09 - CONCLUSION: Fracture left clavicle. Subtle fractures of left posterior fourth and fifth ribs. Otherwise negative specifically no evidence of pneumothorax, pleural effusion or acute cardiopulmonary process Girish Hudson MD Abdomen/Pelvis CT 09/28/162020 Signed Impressions: Service Date/Time: September 22:09 - CONCLUSION: Cervical Spine CT 09/28/16 0000 Signed Impressions: Service Date/Time: September 22:03 - CONCLUSION: No acute bony injury. Degenerative changes as described above Girish Hudson MD Objective Remarks GENERAL: Well-nourished, well-developed pleasant elderly female patient in [facility]. SKIN: Warm and dry. No rash. HEENT: Normocephalic. Atraumatic. Pupils equal and round. No scleral icterus. No injection or drainage. Mucous membranes pink and moist. NECK: Supple. Trachea midline. CARDIOVASCULAR: Regular rate and rhythm. S1, S2 noted. No murmur appreciated. Left upper anterior chest TTP. RESPIRATORY: No accessory muscle use. Clear to auscultation. Breath sounds equal bilaterally. GASTROINTESTINAL: Abdomen soft, non-tender, nondistended. Normoactive bowel sounds x4. MUSCULOSKELETAL: No obvious deformities. Extremities without clubbing, cyanosis , or edema. LUE in sling. NEUROLOGICAL: Awake and alert. No obvious cranial nerve deficits. Motor grossly within normal limits. 5/5 muscle strength in bilateral upper and lower extremities. Normal speech. PSYCHIATRIC: Appropriate mood and affect; insight and judgment normal. Medications and IVs Current Medications Medications (Trade) Dose Ordered Sig/Steph Route Start Time Stop Time Status Last Admin (D50w (Vial) Inj) 25 ml UNSCH PRN IV PUSH 09/28/16 23:45 Glucagon 1 mg 1 mg UNSCH PRN OTHER 09/28/16 23:45 (NS 1000 ml Inj) 1,000 ml @ 100 mls/hr Q10H IV 09/28/16 23:33 09/30/16 05:54 (NS Flush) 2 ml UNSCH PRN FLUSH 09/28/16 23:45 (NS Flush) 2 ml BID FLUSH 09/29/16 09:00 09/29/16 21:51 (Zofran Inj) 4 mg Q6H PRN IVP 09/28/16 23:45 09/29/16 21:51 (Dulcolax Supp) 10 mg DAILY PRN [place] 09/28/16 23:45 (Tylenol) 650 mg Q6H PRN PO 09/28/16 23:45 ([place] 5-325 Mg) 1 tab Q4H PRN PO 09/28/16 23:45 09/29/16 21:51 (Morphine Inj) 2 mg Q3H PRN IV 09/28/16 23:45 (Mirtha-Colace) 1 tab BID PO 09/29/16 21:00 09/29/16 21:50 A/P Problem List: (1) Fall ICD Code: W19.XXXA Status: Acute (2) Ribs, multiple fractures ICD Code: S22.49XA Status: Acute (3) Clavicle fracture ICD Code: S42.009A Status: Acute (4) Renal insufficiency ICD Code: N28.9 Status: Acute (5) HTN (hypertension) ICD Code: I10 Status: Acute (6) DM (diabetes mellitus) ICD Code: E11.9 Status: Acute Assessment and Plan 76-year-old female with a PMH of HTN, COPD and DM who is brought to the ER by EMS secondary to mechanical fall w/ c/o headache and left shoulder pain. Mechanical Fall: s/p mechanical trip and fall, no LOC, +head trauma. CT Head/C -Spine w/ no acute findings, images reviewed by me. PT for eval/tx, recommends rehab. Case management consulted. Left Clavicle Fx: secondary to above, CT Chest w/ left clavicle fracture, s/p sling placement in ER. Analgesics/antiemetics as needed. Left Rib Fxs: CT Chest w/ subtle fractures of left 4th and 5th ribs, images reviewed by me. Analgesics, Lidoderm patch as needed. Incentive spirometry. Acute on Chronic Renal Insufficiency: Creatinine 1.48, previously 1.20 on . UA unremarkable. Given IVF, repeat labs today show improvement Cr 1.19. HTN: BP 180's on arrival, likely compounded by pain. BP currently 150/73, HR 94. Monitor BP. Resume home Metoprolol however holding Lisinopril secondary to GORAN. Pain control. DM: Sliding scale w/ Accu-Cheks. BS 531 on arrival, s/p 10u Insulin. Hgb A1c 8.0 Constipation: started on Mirtha-Colace bid with no relief, will add Miralax daily. Monitor for BM. DVT Prophylaxis: SCD/Teds. Discussed with Dr. Heard. Attending Statement The exam, history, and the medical decision-making described in the above note were completed with the assistance of the mid-level provider. I reviewed and agree with the findings presented. I attest that I had a [id number] encounter with the patient on the same day, and personally performed and documented my assessment and findings in the medical record. Problem Qualifiers (1) Fall: Qualified Code: W19.XXXA - Fall, initial encounter (2) Ribs, multiple fractures: Qualified Code: S22.42XA - Closed fracture of multiple ribs of left side, initial encounter Leilani Gallegos PA-C Sep 30, 2016 08:23 Rolando Heard MD Oct 02, 2016 02:54
[2016-09-30 12:39] VITALS: BP 165/70; PULSE 71; RESP 18; TEMP 98.1; O2SAT 95
[2016-09-30] MEDS: METOPROLOL TARTRATE 50 MG TAB PO SCH ×2 (13:06→21:32)
[2016-09-30] MEDS: POLYETHYLENE GLYCOL 17 GM PKG PO SCH (13:09)
[2016-09-30 15:29] VITALS: BP 142/65; PULSE 56; RESP 18; TEMP 97.6; O2SAT 97
[2016-09-30 19:27] VITALS: BP 149/68; PULSE 56; RESP 20; TEMP 97.9; O2SAT 95
[2016-10-01] VITALS (7 sets, daily range): BP systolic 129–162; BP diastolic 58–78; PULSE 56–68; RESP 12–20; TEMP 96–97.9; O2SAT 92–98
[2016-10-01] MEDS: SODIUM CHLOR 0.9% 1000 ML INJ 1,000 ML IV SCH ×3 (01:33→21:33)
[2016-10-01] MEDS: INSULIN ASPART SUPPLEMENTAL SCALE SQ SCH ×4 (06:34→21:52)
[2016-10-01] MEDS: ACETAMINOPHEN/HYDROcodone 325 MG/5 MG TAB PO PRN ×3 (06:55→21:49)
[2016-10-01] MEDS: POLYETHYLENE GLYCOL 17 GM PKG PO SCH (09:39)
[2016-10-01] MEDS: DOCUSATE SODIUM 50 MG/SENNA 8.6 MG TAB PO SCH ×2 (09:39→21:49)
[2016-10-01] MEDS: ONDANSETRON HCL 4 MG/2 ML VIAL IVP PRN (09:40)
[2016-10-01] MEDS: METOPROLOL TARTRATE 50 MG TAB PO SCH ×2 (09:40→21:49)
[2016-10-01] MEDS: SODIUM CHLORIDE 0.9% FLUSH 5 ML FLUSH FLUSH SCH ×2 (09:40→21:00)
[2016-10-01] MEDS ORDERED: MAGNESIUM HYDROXIDE SUSP 30 ML CUP PO PRN (09:45)
--- NOTE | 2016-10-01 09:46 | HHI.PR ---
Subjective Remarks Follow up for fall with clavicle fracture and rib fractures, constipation. The patient reports still no BM despite Mirtha-colace and Miralax. She states usually Miralax works for her. Denies any abdominal pain, nausea/vomiting. Still has left clavicular and shoulder pain, relieved by pain medications. She denies any other medical complaints. Objective Vitals Vital Signs Date Time Temp Pulse Resp B/P Pulse Ox O2 Delivery O2 Flow Rate FiO2 10/01/16 08:41 18 10/01/16 08:00 96.0 67 20 162/73 94 10/01/16 04:35 97.8 56 18 129/58 98 10/01/16 00:00 97.8 68 18 147/78 94 09/30/16 19:27 97.9 56 20 149/68 95 09/30/16 15:29 97.6 56 18 142/65 97 09/30/16 12:39 98.1 71 18 165/70 95 I/O 09/30/16 09/30/16 09/30/16 10/01/16 10/01/16 10/01/16 07:00 15:00 23:00 07:00 15:00 23:00 Intake Total 240 ml 1220 ml Balance 240 ml 1220 ml Intake Oral 240 ml 120 ml IV Total 1100 ml # Voids 1 1 Result Diagram: 09/29/16 0444 09/30/16 0555 Imaging Last Impressions Shoulder X-Ray 09/28/162020 Signed Impressions: Service Date/Time: September 21:29 - CONCLUSION: Acute clavicle fracture. Girish Hudson MD Pelvis X-Ray 09/28/162020 Signed Impressions: Service Date/Time: September 21:27 - CONCLUSION: Intact pelvis Girish Hudson MD Head CT 09/28/162020 Signed Impressions: Service Date/Time: September 22:03 - CONCLUSION: Normal examination for a patient of this age. Girish Hudson MD Chest X-Ray 09/28/162020 Signed Impressions: Service Date/Time: September 21:20 - CONCLUSION: Nonspecific findings. Elevation right hemidiaphragm indeterminate chronicity. Deformity of the left clavicle indeterminate chronicity Girish Hudson MD Chest CT 09/28/162020 Signed Impressions: Service Date/Time: September 22:09 - CONCLUSION: Fracture left clavicle. Subtle fractures of left posterior fourth and fifth ribs. Otherwise negative specifically no evidence of pneumothorax, pleural effusion or acute cardiopulmonary process Girish Hudson MD Abdomen/Pelvis CT 09/28/162020 Signed Impressions: Service Date/Time: September 22:09 - CONCLUSION: Cervical Spine CT 09/28/16 0000 Signed Impressions: Service Date/Time: September 22:03 - CONCLUSION: No acute bony injury. Degenerative changes as described above Girish Hudson MD Objective Remarks GENERAL: Well-nourished, well-developed pleasant elderly female patient in [facility]. SKIN: Warm and dry. No rash. HEENT: Normocephalic. Atraumatic. Pupils equal and round. No scleral icterus. No injection or drainage. Mucous membranes pink and moist. NECK: Supple. Trachea midline. CARDIOVASCULAR: Regular rate and rhythm. S1, S2 noted. No murmur appreciated. Left upper anterior chest TTP. RESPIRATORY: No accessory muscle use. Clear to auscultation. Breath sounds equal bilaterally. GASTROINTESTINAL: Abdomen soft, non-tender, nondistended. Normoactive bowel sounds x4. MUSCULOSKELETAL: No obvious deformities. Extremities without clubbing, cyanosis , or edema. LUE in sling. NEUROLOGICAL: Awake and alert. No obvious cranial nerve deficits. Motor grossly within normal limits. Normal speech. PSYCHIATRIC: Appropriate mood and affect; insight and judgment normal. Medications and IVs Current Medications Medications (Trade) Dose Ordered Sig/Steph Route Start Time Stop Time Status Last Admin (D50w (Vial) Inj) 25 ml UNSCH PRN IV PUSH 09/28/16 23:45 Glucagon 1 mg 1 mg UNSCH PRN OTHER 09/28/16 23:45 (NS 1000 ml Inj) 1,000 ml @ 100 mls/hr Q10H IV 09/28/16 23:33 10/01/16 01:33 (NS Flush) 2 ml UNSCH PRN FLUSH 09/28/16 23:45 (NS Flush) 2 ml BID FLUSH 09/29/16 09:00 09/30/16 08:06 (Zofran Inj) 4 mg Q6H PRN IVP 09/28/16 23:45 09/29/16 21:51 (Dulcolax Supp) 10 mg DAILY PRN [place] 09/28/16 23:45 (Tylenol) 650 mg Q6H PRN PO 09/28/16 23:45 ([place] 5-325 Mg) 1 tab Q4H PRN PO 09/28/16 23:45 10/01/16 06:55 (Morphine Inj) 2 mg Q3H PRN IV 09/28/16 23:45 (Mirtha-Colace) 1 tab BID PO 09/29/16 21:00 09/30/16 21:32 (Miralax) 17 gm DAILY PO 09/30/16 09:00 09/30/16 13:09 (Lopressor) 50 mg Q12HR PO 09/30/16 09:00 09/30/16 21:32 (Januvia) 25 mg DAILY PO 09/30/16 12:45 09/30/16 13:48 Urinary Catheter: No Vascular Central Line Catheter: No A/P Problem List: (1) Fall ICD Code: W19.XXXA Status: Acute (2) Ribs, multiple fractures ICD Code: S22.49XA Status: Acute (3) Clavicle fracture ICD Code: S42.009A Status: Acute (4) Renal insufficiency ICD Code: N28.9 Status: Acute (5) HTN (hypertension) ICD Code: I10 Status: Acute (6) DM (diabetes mellitus) ICD Code: E11.9 Status: Acute Assessment and Plan 76-year-old female with a PMH of HTN, COPD and DM who is brought to the ER by EMS secondary to mechanical fall w/ c/o headache and left shoulder pain. Mechanical Fall: s/p mechanical trip and fall, no LOC, +head trauma. CT Head/C -Spine w/ no acute findings, images reviewed by me. PT for eval/tx, recommends rehab. Case management consulted. Left Clavicle Fx: secondary to above, CT Chest w/ left clavicle fracture, s/p sling placement in ER. Analgesics/antiemetics as needed. Left Rib Fxs: CT Chest w/ subtle fractures of left 4th and 5th ribs, images reviewed by me. Analgesics, Lidoderm patch as needed. Incentive spirometry. Acute on Chronic Renal Insufficiency: Creatinine 1.48, previously 1.20 on . UA unremarkable. Given IVF, repeat labs today show improvement Cr 1.19. HTN: BP 180's on arrival, likely compounded by pain. BP currently 150/73, HR 94. Monitor BP. Resume home Metoprolol however holding Lisinopril secondary to GORAN. Pain control. DM: Sliding scale w/ Accu-Cheks. BS 531 on arrival, s/p 10u Insulin. Hgb A1c 8.0. Restart patient's Januvia. Constipation: started on Mirtha-Colace bid with no relief, added Miralax daily. Still no BM today, will add MOM prn. DVT Prophylaxis: SCD/Teds, Lovenox Discussed with Dr. Heard. Discharge Planning Discharge when accepted to SNF. Attending Statement The exam, history, and the medical decision-making described in the above note were completed with the assistance of the mid-level provider. I reviewed and agree with the findings presented. I attest that I had a [id number] encounter with the patient on the same day, and personally performed and documented my assessment and findings in the medical record. Problem Qualifiers (1) Fall: Qualified Code: W19.XXXA - Fall, initial encounter (2) Ribs, multiple fractures: Qualified Code: S22.42XA - Closed fracture of multiple ribs of left side, initial encounter Leilani Gallegos PA-C Oct 01, 2016 09:46 Rolando Heard MD Oct 02, 2016 02:49
[2016-10-01] MEDS: ENOXAPARIN SODIUM 40 MG/0.4 ML SYRINGE SQ SCH (21:49)
[2016-10-02 04:38] VITALS: BP 131/73; PULSE 62; RESP 18; TEMP 97.7; O2SAT 94
[2016-10-02] MEDS: INSULIN ASPART SUPPLEMENTAL SCALE SQ SCH ×4 (06:14→21:10)
[2016-10-02 07:31] VITALS: BP 148/61; PULSE 78; RESP 16; TEMP 97.7; O2SAT 95
[2016-10-02] MEDS ORDERED: SENNOSIDES 8.6 MG TAB PO PRN (09:15)
[2016-10-02] MEDS: POLYETHYLENE GLYCOL 17 GM PKG PO SCH (09:15)
[2016-10-02] MEDS: SODIUM CHLORIDE 0.9% FLUSH 5 ML FLUSH FLUSH SCH ×2 (09:16→20:58)
[2016-10-02] MEDS: METOPROLOL TARTRATE 50 MG TAB PO SCH ×3 (09:16→21:00)
[2016-10-02] MEDS: DOCUSATE SODIUM 50 MG/SENNA 8.6 MG TAB PO SCH ×2 (09:16→20:57)
--- NOTE | 2016-10-02 09:18 | HHI.PR ---
Subjective Remarks Follow-up for clavicle and rib fractures. Patient worked with PT today. Would like to go home, but understands the need for her SNF, agreeable. She had 2 bowel movements last night. She reports continued pain in her left chest wall at the sites of the fracture, states the pain medicine helps. Understands the need to increase Januvia to follow-up with PCP with hyperglycemia. She has been using the incentive spirometer much, because of painful breathing. Objective Vitals Vital Signs Date Time Temp Pulse Resp B/P Pulse Ox O2 Delivery O2 Flow Rate FiO2 10/02/16 07:31 97.7 78 16 148/61 95 10/02/16 04:38 97.7 62 18 131/73 94 10/01/16 23:37 97.9 64 18 139/64 94 10/01/16 19:42 97.9 64 12 147/67 94 10/01/16 18:41 18 10/01/16 16:00 96.4 61 18 132/61 92 10/01/16 12:00 96.0 62 20 157/70 94 I/O 10/01/16 10/01/16 10/01/16 10/02/16 10/02/16 10/02/16 07:00 15:00 23:00 07:00 15:00 23:00 Intake Total 1220 ml 1300 ml 1430 ml Balance 1220 ml 1300 ml 1430 ml Intake Oral 120 ml 1300 ml 480 ml IV Total 1100 ml 950 ml # Voids 1 3 3 # Bowel Movements 0 1 1 Result Diagram: 09/29/16 0444 09/30/16 0555 Imaging Last Impressions Shoulder X-Ray 09/28/162020 Signed Impressions: Service Date/Time: September 21:29 - CONCLUSION: Acute clavicle fracture. Girish Hudson MD Pelvis X-Ray 09/28/162020 Signed Impressions: Service Date/Time: September 21:27 - CONCLUSION: Intact pelvis Girish Hudson MD Head CT 09/28/162020 Signed Impressions: Service Date/Time: September 22:03 - CONCLUSION: Normal examination for a patient of this age. Girish Hudson MD Chest X-Ray 09/28/162020 Signed Impressions: Service Date/Time: September 21:20 - CONCLUSION: Nonspecific findings. Elevation right hemidiaphragm indeterminate chronicity. Deformity of the left clavicle indeterminate chronicity Girish Hudson MD Chest CT 09/28/162020 Signed Impressions: Service Date/Time: September 22:09 - CONCLUSION: Fracture left clavicle. Subtle fractures of left posterior fourth and fifth ribs. Otherwise negative specifically no evidence of pneumothorax, pleural effusion or acute cardiopulmonary process Girish Hudson MD Abdomen/Pelvis CT 09/28/162020 Signed Impressions: Service Date/Time: September 22:09 - CONCLUSION: Cervical Spine CT 09/28/16 0000 Signed Impressions: Service Date/Time: September 22:03 - CONCLUSION: No acute bony injury. Degenerative changes as described above Girish Hudson MD Objective Remarks GENERAL: Well-developed well-nourished. In no acute distress. SKIN: Warm and dry. No lesions noted. HEENT: Normocephalic. Pupils equal and round. Mucous membranes pink and moist. CARDIOVASCULAR: Regular rate and rhythm. No murmur appreciated. RESPIRATORY: No accessory muscle use. Clear to auscultation. Breath sounds equal bilaterally. GASTROINTESTINAL: Abdomen soft, non-tender, nondistended. Bowel sounds x4. MUSCULOSKELETAL: Left chest wall TTP. LUE in a sling. No clubbing or cyanosis. No edema. NEUROLOGICAL: Awake and alert. No focal neurological deficits. Moves upper and lower extremities spontaneously. Normal speech. PSYCHIATRIC: Appropriate mood and affect; insight and judgment normal. A/P Problem List: (1) Fall ICD Code: W19.XXXA Status: Acute (2) Ribs, multiple fractures ICD Code: S22.49XA Status: Acute (3) Clavicle fracture ICD Code: S42.009A Status: Acute (4) Renal insufficiency ICD Code: N28.9 Status: Chronic (5) HTN (hypertension) ICD Code: I10 Status: Chronic (6) DM (diabetes mellitus) ICD Code: E11.9 Status: Chronic Assessment and Plan 76-year-old female with a PMH of HTN, COPD and DM who is brought to the ER by EMS secondary to mechanical fall w/ c/o headache and left shoulder pain. Mechanical Fall: s/p mechanical trip and fall, no LOC, +head trauma. CT Head/C -Spine w/ no acute findings. PT for eval/tx, recommends rehab. Case management consulted. [place] as needed for pain with a bowel regimen. Left Clavicle Fx: secondary to above, CT Chest w/ left clavicle fracture, s/p sling placement in ER. Analgesics/antiemetics as needed. Left Rib Fxs: CT Chest w/ subtle fractures of left 4th and 5th ribs. Analgesics, Lidoderm patch as needed. Incentive spirometry, patient educated and encouraged on use. Mild Acute kidney injury on chronic kidney disease: Creatinine 1.48, previously 1.20 on 10/26/06. UA unremarkable. Given IVF, repeat labs show creatinine improvement to baseline 1.2. DC IVF. HTN: BP 180's on arrival, likely compounded by pain. BP currently 150/73, HR 94. Monitor BP. Continue home Metoprolol. Resume home Lisinopril (held for GORAN). Pain control. DM: With hyperglycemia. BS 531 on arrival, s/p 10u Insulin. Hgb A1c 8.0. Increase patient's Januvia to 50 mg daily. Outpatient PCP follow-up. Sliding scale w/ Accu-Cheks. Constipation: Given MiraLAX and milk of magnesia with 2 BMs. Resolved. Continue bowel regimen with narcotic pain control. DVT Prophylaxis: SCD/Teds, Lovenox Discharge Planning Discharge to SNF when arranged. Attending Statement The exam, history, and the medical decision-making described in the above note were completed with the assistance of the mid-level provider. I reviewed and agree with the findings presented. I attest that I had a [id number] encounter with the patient on the same day, and personally performed and documented my assessment and findings in the medical record. Problem Qualifiers (1) Fall: Qualified Code: W19.XXXA - Fall, initial encounter (2) Ribs, multiple fractures: Qualified Code: S22.42XA - Closed fracture of multiple ribs of left side, initial encounter (3) HTN (hypertension): Qualified Code: I10 - Essential hypertension (4) DM (diabetes mellitus): Qualified Code: E11.65 - Type 2 diabetes mellitus with hyperglycemia, without long-term current use of insulin Demetri Ashley Oct 02, 2016 09:18 Rolando Heard MD Oct 08, 2016 07:16
[2016-10-02] MEDS: ACETAMINOPHEN/HYDROcodone 325 MG/5 MG TAB PO PRN ×2 (09:35→21:11)
[2016-10-02 11:28] VITALS: BP 142/65; PULSE 51; RESP 18; TEMP 98.1; O2SAT 94
[2016-10-02 15:42] VITALS: BP 136/59; PULSE 54; RESP 17; TEMP 97.9; O2SAT 96
[2016-10-02 20:01] VITALS: BP 122/57; PULSE 58; RESP 18; TEMP 98.1; O2SAT 95
[2016-10-02] MEDS: ENOXAPARIN SODIUM 40 MG/0.4 ML SYRINGE SQ SCH (20:57)
[2016-10-03] VITALS: BP 132/55; PULSE 60; RESP 18; TEMP 97.1; O2SAT 93
[2016-10-03 04:00] VITALS: BP 145/75; PULSE 64; RESP 17; TEMP 96.2; O2SAT 95
[2016-10-03] MEDS: INSULIN ASPART SUPPLEMENTAL SCALE SQ SCH ×2 (06:22→12:10)
[2016-10-03 08:00] VITALS: BP 152/67; PULSE 61; RESP 18; TEMP 95.5; O2SAT 95
[2016-10-03] MEDS: POLYETHYLENE GLYCOL 17 GM PKG PO SCH (09:00)
[2016-10-03] MEDS ORDERED: LISINOPRIL 20 MG TAB PO SCH (09:00)
[2016-10-03] MEDS: DOCUSATE SODIUM 50 MG/SENNA 8.6 MG TAB PO SCH (09:40)
[2016-10-03] MEDS: SODIUM CHLORIDE 0.9% FLUSH 5 ML FLUSH FLUSH SCH (09:41)
[2016-10-03] MEDS: METOPROLOL TARTRATE 50 MG TAB PO SCH (09:41)
[2016-10-03] MEDS: ACETAMINOPHEN/HYDROcodone 325 MG/5 MG TAB PO PRN ×2 (09:49→14:59)
[2016-10-03 12:00] VITALS: BP 116/51; PULSE 50; RESP 18; TEMP 95.8; O2SAT 99
[2016-10-03] MEDS ORDERED: SITA50 PO (13:50)
[2016-10-03] MEDS ORDERED: METO-309 PO (13:50)
[2016-10-03] MEDS ORDERED: POLY17S PO (13:50)
[2016-10-03] MEDS ORDERED: SENN1TAB PO (13:50)
[2016-10-03] MEDS ORDERED: HYDR-3516 PO (13:50)
[2016-10-03] MEDS ORDERED: NOVOLOGSS SQ (13:50)
--- NOTE | 2016-10-09 01:27 | HHI.DS ---
Discharge Summary Admission Date Sep 28, 2016 at 23:30 Discharge Date: Oct 03, 2016 Admitting Diagnosis Fall, Clavicle Fx, Hyperglycemia, Rib Fxs (1) Fall ICD Code: W19.XXXA (2) Ribs, multiple fractures ICD Code: S22.49XA (3) Clavicle fracture ICD Code: S42.009A (4) Renal insufficiency ICD Code: N28.9 (5) HTN (hypertension) ICD Code: I10 (6) DM (diabetes mellitus) ICD Code: E11.9 Procedures no invasive procedures. Brief History - From Admission This is a 76-year-old female with a PMH of HTN, COPD and DM who is brought to the ER by EMS secondary to mechanical fall w/ c/o headache and left shoulder pain. Per pt she was walking up to her house, states she was hurrying and tripped over the front step. No LOC, +head trauma. Called her Son-in-Law who called EMS. On arrival, BP 187/87, HR 99, O2 sat 98% on RA, Afebrile. Creatinine 1.48, previously 1.20 on 10/26/06, BS 531, s/p 10u Insulin. CT Head normal. CT C-spine with no acute injury. Left Shoulder X-ray with acute clavicle fracture. Pelvis X-ray intact. CT Chest with fracture left clavicle, subtle fractures of left posterior fourth and fifth ribs, no pneumothorax. CT Abd/Pelvis negative. S/p sling in ER. Pt w/ difficulty ambulating, lives alone , unsafe discharge at this time. Imaging Last Impressions Shoulder X-Ray 09/28/162020 Signed Impressions: Service Date/Time: September 21:29 - CONCLUSION: Acute clavicle fracture. Girish Hudson MD Pelvis X-Ray 09/28/162020 Signed Impressions: Service Date/Time: September 21:27 - CONCLUSION: Intact pelvis Girish Hudson MD Head CT 09/28/162020 Signed Impressions: Service Date/Time: September 22:03 - CONCLUSION: Normal examination for a patient of this age. Girish Hudson MD Chest X-Ray 09/28/162020 Signed Impressions: Service Date/Time: September 21:20 - CONCLUSION: Nonspecific findings. Elevation right hemidiaphragm indeterminate chronicity. Deformity of the left clavicle indeterminate chronicity Girish Hudson MD Chest CT 09/28/162020 Signed Impressions: Service Date/Time: September 22:09 - CONCLUSION: Fracture left clavicle. Subtle fractures of left posterior fourth and fifth ribs. Otherwise negative specifically no evidence of pneumothorax, pleural effusion or acute cardiopulmonary process Girish Hudson MD Abdomen/Pelvis CT 09/28/162020 Signed Impressions: Service Date/Time: September 22:09 - CONCLUSION: Cervical Spine CT 09/28/16 0000 Signed Impressions: Service Date/Time: September 22:03 - CONCLUSION: No acute bony injury. Degenerative changes as described above Girish Hudson MD PE at Discharge GENERAL: Well-developed well-nourished. In no acute distress.exam unchanged from day prior. SKIN: Warm and dry. No lesions noted. HEENT: Normocephalic. Pupils equal and round. Mucous membranes pink and moist. CARDIOVASCULAR: Regular rate and rhythm. No murmur appreciated. RESPIRATORY: No accessory muscle use. Clear to auscultation. Breath sounds equal bilaterally. GASTROINTESTINAL: Abdomen soft, non-tender, nondistended. Bowel sounds x4. MUSCULOSKELETAL: Left chest wall TTP. LUE in a sling. No clubbing or cyanosis. No edema. NEUROLOGICAL: Awake and alert. No focal neurological deficits. Moves upper and lower extremities spontaneously. Normal speech. PSYCHIATRIC: Appropriate mood and affect; insight and judgment normal. Hospital Course 76-year-old female with a PMH of HTN, COPD and DM who is brought to the ER by EMS secondary to mechanical fall w/ c/o headache and left shoulder pain. Mechanical Fall: s/p mechanical trip and fall, no LOC, +head trauma. CT Head/C -Spine w/ no acute findings. PT for eval/tx, recommends rehab. Case management consulted. [place] as needed for pain with a bowel regimen. Left Clavicle Fx: secondary to above, CT Chest w/ left clavicle fracture, s/p sling placement in ER. Analgesics/antiemetics as needed. Left Rib Fxs: CT Chest w/ subtle fractures of left 4th and 5th ribs. Analgesics, Lidoderm patch as needed. Incentive spirometry, patient educated and encouraged on use. Mild Acute kidney injury on chronic kidney disease: Creatinine 1.48, previously 1.20 on 10/26/06. UA unremarkable. Given IVF, repeat labs show creatinine improvement to baseline 1.2. DC IVF. HTN: BP 180's on arrival, likely compounded by pain. BP currently 150/73, HR 94. Monitor BP. Continue home Metoprolol. Resume home Lisinopril (held for GORAN). Pain control. DM: With hyperglycemia. BS 531 on arrival, s/p 10u Insulin. Hgb A1c 8.0. Increase patient's Januvia to 50 mg daily. Outpatient PCP follow-up. Sliding scale w/ Accu-Cheks. Constipation: Given MiraLAX and milk of magnesia with 2 BMs. Resolved. Continue bowel regimen with narcotic pain control. DVT Prophylaxis: SCD/Teds, Lovenox Pt Condition on Discharge: Good Discharge Disposition: Discharge to SNF Discharge Time: <= 30 minutes Discharge Instructions DIET: Follow Instructions for: Diabetic Diet Activities you can perform: See Additionl Instruction Other Activity Instructions: left arm in sling Follow up Referrals: Orthopedics - 1 Week PCP Follow-up - 2-3 Days New Medications: Hydrocodone-Acetaminophen (Hydrocodone-Acetaminophen) 5-325 mg Tab 1 TAB PO Q4H PRN PAIN SCALE 3 TO 10 #20 TAB Insulin Aspart Inj (Novolog Inj) 100 Unit/Ml Inj 1 INJECTION SQ ACHS SLIDING SCALE Blood Sugar Management Days 30 INJECTION Metoprolol Tartrate (Lopressor) 50 Mg Tab 50 MG PO Q12HR Blood Pressure Management #60 TAB Polyethylene Glycol 3350 Powder (Polyethylene Glycol 3350 Powder) 17 Gm Pow 17 GM PO DAILY Constipation Days 30 BOTTLE Sennosides-Docusate Sodium (Senna Plus 8.6-50 mg) 1 Tab Tab 1 TAB PO BID Constipation Days 30 TAB Sitagliptin (Januvia) 50 Mg Tab 50 MG PO DAILY Blood Sugar Management Days 30 TAB Continued Medications: Lisinopril (Lisinopril) 40 Mg Tab 40 MG PO DAILY Blood Pressure Management #30 Ref 0 TAB Discontinued Medications: Albuterol Neb (Albuterol Neb) 2.5 Mg/3 Ml Neb 2.5 MG NEB Q6HR While awake Breathing Treatment #60 Ref 0 NEBULE Metoprolol Tartrate (Metoprolol Tartrate) 50 Mg Tab 50 MG PO DAILY #30 Ref 0 TAB Sitagliptin (Januvia) 25 Mg Tab Unknown Dose PO DAILY Blood Sugar Management #30 Ref 0 TAB Rolando Heard MD Oct 09, 2016 01:27
== END 2016-10-03 15:19 | DRG 184 ==
LOC: NEPE 18:45 → NEDA 23:30 → UNDOADMIN 23:30 → INTOOBSV 23:35 → NEDA 23:35 → NEPFCDU 09-29 01:47 → NEPHCDU 10-01 20:27 → NEPFCDU 10-01 20:27 → OBSVTOIN 10-02 10:58 → N06B 10-02 22:41 → NEPHCDU 10-02 22:41 → UNDODISIN 10-03 15:19
PROVIDERS: ADMIT Internal Medicine; ATTEND Internal Medicine
DX: S22.42XA Multiple fractures of ribs, left side, initial encounter for closed fracture (principal); N17.9 Acute kidney failure, unspecified; E11.65 Type 2 diabetes mellitus with hyperglycemia; E11.22 Type 2 diabetes mellitus with diabetic chronic kidney disease; S42.022A Displaced fracture of shaft of left clavicle, initial encounter for closed fracture; J44.9 Chronic obstructive pulmonary disease, unspecified; W01.0XXA Fall on same level from slipping, tripping and stumbling without subsequent striking against object, initial encounter; Y93.01 Activity, walking, marching and hiking; Y92.9 Unspecified place or not applicable; Z88.5 Allergy status to narcotic agent; N18.9 Chronic kidney disease, unspecified; I12.9 Hypertensive chronic kidney disease with stage 1 through stage 4 chronic kidney disease, or unspecified chronic kidney disease; Z88.2 Allergy status to sulfonamides; R51 Headache; K59.00 Constipation, unspecified; R07.1 Chest pain on breathing; R26.2 Difficulty in walking, not elsewhere classified; Z60.2 Problems related to living alone
CPT/HCPCS: 70450; 71010; 71260; 72125; 72170; 73030; 74177; 76937; 80048; 80053; 81001; 82948; 83036; 85025; 85610; 85730; 87077; 87086; 87186; 94150; 96361; 96374; 96375; 96376; G0378; J1170; J1650; J1815; J2405; J7030; Q9967